=== PATIENT | female | born 1955 | race Caucasian/White ===

== ENCOUNTER 2023-09-15 16:15 | Outpatient (REF) | payer MEDICARE, SELFPAY ==
[2023-09-15 16:26] LABS: ALT 29 U/L (14-59); AST 19 U/L (15-37); Albumin 4.1 g/dL (3.4-5.0); Alkaline Phosphatase 84 U/L (46-116); Anion Gap 11.7 mmol/L (3-11); BUN 11 mg/dL (7-18); Bilirubin, Total 0.46 mg/dL (0.2-1.0); CO2 25.3 mmol/L (21.0-32.0); CREATININE 0.7 mg/dL (0.55-1.02); Calcium 9.5 mg/dL (8.5-10.1); Calculated LDL 149 mg/dL (<100); Chloride 104 mmol/L (98-107); Cholesterol 253 mg/dL (<200); Estimated GFR 95.32 (mL/min/1.73m2); Glucose 95 mg/dL (74-106); HDL Cholesterol 76 mg/dL (40-60); Potassium 4.3 mmol/L (3.5-5.1); Sodium 141 mmol/L (136-145); Triglyceride 140 mg/dL (<150)
[2023-09-15 16:39] LABS: Total Protein 7.3 g/dL (6.4-8.2)
[2023-09-15 23:02] LABS: Hepatitis C Ab w Rflx HCV PCR Negative (Negative)
[2023-09-15 23:03] LABS: HIV-1/2 Ag & Ab Screen Negative (Negative)
== END 2023-09-15 16:16 | disposition home or self-care (01) ==
LOC: NCHCN 16:15
PROVIDERS: Visit Provider Family Medicine
DX: E78.5 Hyperlipidemia, unspecified (principal); Z11.4 Encounter for screening for human immunodeficiency virus [HIV]; Z11.59 Encounter for screening for other viral diseases
CPT/HCPCS: 80053; 80061; 86803; 87389

== ENCOUNTER 2023-10-07 02:24 | Outpatient (CLI) | payer MEDICARE, SELFPAY ==
--- NOTE | 2023-10-07 | DI.DEXA_ITS ---
Exam(s) XR DEXA BONE DENSITY W/WO SINDI EXAM: XR DEXA BONE DENSITY W/WO SINDI CLINICAL HISTORY: POSTMENOPAUSAL STATE ASYMPTOMATIC, Z78.0 TECHNIQUE: COMPARISON: No exams were available for comparison FINDINGS: Lateral Spine Image: Unremarkable. No compression deformities identified. Left hip: Total T-Score: -2.4. Total Z-Score: -1.1 T- and Z-scores: The findings are consistent with osteopenia. There is osteoporosis in the femoral n michael with T-score of -2.7. Lumbar Spine: Total T-Score: -2.9 Total Z-Score: -1.0 T- and Z-scores: Findings are consistent with osteoporosis. IMPRESSION: Osteoporosis in the lumbar spine and femoral neck.
--- NOTE | 2023-10-07 | DI.MAMMO_ITS ---
Exam(s) MAMMO SCREENING EXAM: MAMMO SCREENING CLINICAL HISTORY: SCREENING, Z12.31 TECHNIQUE: Bilateral full field digital CC and MLO mammographic images were obtained with 3D tomosyn thesis and utilizing computer aided detection (CAD). COMPARISON: Available for comparison. FINDINGS: Masses/Architectural Distortion: There are small bilateral breast nodules again seen. No suspicious nodules or areas of architectural distortion are seen. Microcalcifications: No suspicious pleomorphic-type are seen. Skin Thickening/Nipple Retraction: None. IMPRESSION: 1. No significant interval change with no specific features of malignancy noted. 2. Unless there is more urgent need, screening mammography is recommended, as per [employer] guidelines. BI-RADS Category 2 - Benign Findings Breast Density - Category B - Scattered areas of fibroglandular density Breast density category C or D implies that the patient has dense breast tissue. Dense breast tissue is very common and is not abnormal but dense breast tissue can make it harder to find cancer on a ma mmogram. Also, dense breast tissue may increase their breast cancer risk. This information about the result of the mammogram report was provided to the patient to raise their awareness. Use this report when you speak with the patient about their risks for breast cancer, which includes their family hist ory. At that time, you may recommend for more screening tests (Ultrasound or MRI) as they might be us eful based on their risk. A negative radiographic report should not delay biopsy if a dominant or clinically suspicious mass is present. Up to ten percent of cancers are not identified on mammography. A negative report may reinforce clinical impression. Adenosis and dense breasts may obscure an underlying neoplasm. False positive reports average 6 to 10%. Patient will receive a letter notifying them of these results.
== END 2023-10-07 02:44 ==
LOC: DI 02:24
PROVIDERS: PCP Family Medicine; Visit Provider Family Medicine
DX: Z78.0 Asymptomatic menopausal state (principal); Z12.31 Encounter for screening mammogram for malignant neoplasm of breast; Z13.820 Encounter for screening for osteoporosis; M81.0 Age-related osteoporosis without current pathological fracture
CPT/HCPCS: 77063; 77067; 77080

== ENCOUNTER 2024-02-03 12:48 | Outpatient (REF) | payer MEDICARE, SELFPAY ==
--- NOTE | 2024-02-03 11:00 | PAPFT_PTH ---
PATIENT: Shruthi Mullins LOC: [facility] U#:[id number] AGE/SX: 68/F ROOM: RE02/03/[address]: Yasemin Tran : 1955 BED: DIS: 02/03/2024 SPEC #: [id number] RECD: 02/03/24 16:53 STATUS: KLAUDIA REQ #: [id number] JOSE L: 02/03/24 11:[address]: Yasemin Tran DEPT: [facility] Cytology RECD BY: Tiff Ling Tissues: 1 - CX/ENDOCX FOR PAP SMEARS Procedures: PAP THIN PREP/[facility] Screening HPV DNA PROBE Comments: [id number] (HPV 16 & 18/45)
== END 2024-02-03 12:49 | disposition home or self-care (01) ==
LOC: NCHCN 12:48
PROVIDERS: PCP Family Medicine; Visit Provider Family Medicine
DX: Z12.4 Encounter for screening for malignant neoplasm of cervix (principal)
CPT/HCPCS: 88142; 87624

== ENCOUNTER 2024-02-11 01:56 | Outpatient (CLI) | payer MEDICARE, SELFPAY ==
[2024-02-11 08:46] LABS: Calculated LDL 138 mg/dL (<100); Cholesterol 235 mg/dL (<200); HDL Cholesterol 79 mg/dL (40-60); Triglyceride 90 mg/dL (<150); Vitamin D 25 Total 78.5 ng/mL (30-100)
== END 2024-02-11 01:57 | disposition home or self-care (01) ==
PROVIDERS: PCP Family Medicine; Visit Provider Family Medicine
DX: E78.5 Hyperlipidemia, unspecified (principal); M81.0 Age-related osteoporosis without current pathological fracture
CPT/HCPCS: 36415; 80061; 82306

== ENCOUNTER 2024-05-04 11:40 | Outpatient (REF) | payer MEDICARE, SELFPAY ==
--- NOTE | 2024-05-04 16:20 | SKI_PTH ---
PATIENT: Shruthi Mullins LOC: [facility] U#:[id number] AGE/SX: 68/F ROOM: RE05/04/[address]: Yasemin Tran : 1955 BED: DIS: 05/05/2024 SPEC #: [id number] RECD: 05/05/24 12:06 STATUS: KLAUDIA REJeff #: [id number] JOSE L: 05/04/24 16:[address]: Yasemin Tran DEPT: Surgical Specimen RECD BY: Tiff Ling Tissues: 1 - SKIN BIOPSY(SHAVE/PUNCH) Procedures: SKIN LEVEL 4 Comments: [id number]
== END 2024-05-05 11:27 | disposition home or self-care (01) ==
LOC: NCHCN 11:40
PROVIDERS: PCP Family Medicine; Visit Provider Family Medicine
DX: D22.72 Melanocytic nevi of left lower limb, including hip (principal)
CPT/HCPCS: 88305

== ENCOUNTER 2025-02-06 13:25 | Outpatient (REF) | payer MEDICARE, SELFPAY ==
[2025-02-06 15:57] LABS: Cholesterol 232 mg/dL (<200); HDL Cholesterol 84 mg/dL (>or=50)
== END 2025-02-06 13:26 | disposition home or self-care (01) ==
LOC: NCHCN 13:25
PROVIDERS: PCP Family Medicine; Visit Provider Family Medicine
DX: E78.5 Hyperlipidemia, unspecified (principal)
CPT/HCPCS: 80061